=== PATIENT | male | born 1990 ===

== ENCOUNTER 2019-04-29 05:22 | Day surgery (SDC) | payer OTHER ==
[2019-04-29] VITALS (10 sets, daily range): BP systolic 104–130; BP diastolic 45–83
[~2019-04-29] VITALS: Ht 167.6 cm; Wt 81.6 kg
[~2019-04-29 05:22] MED LIST: NKM
[2019-04-29] MEDS ORDERED: celeBREX 200mg Cap **SURGERY PATIENTS ONLY ORAL ONE (06:00)
[2019-04-29] MEDS ORDERED: ceFAZolin 1gm IVPB IVPB ONE ×2 (06:00)
[2019-04-29] MEDS ORDERED: oxyCONTIN 20mg tab ORAL ONE (06:00)
[2019-04-29] MEDS ORDERED: FISH OIL CAP1000 MG ORAL (06:14)
[2019-04-29] MEDS ORDERED: D5 1/2NS 1,000 ML IV SCH (07:15)
[2019-04-29] MEDS ORDERED: HYDROcodone/Acetamin 5/325 tab ORAL PRN (07:15)
[2019-04-29] MEDS ORDERED: Tylenol #3 tab (300mg/30mg) ORAL PRN (07:15)
--- NOTE | 2019-04-29 07:16 | Operative Note - PDOC ---
Operative Note Operative Note Pre-op Diagnosis: orif left syndesmotic ligameny with painful hardware Procedure: see op report Post-op Diagnosis: same as pre-op plus Operative Findings: consistent w/pre-op dx studies Anesthesia: MAC Specimen: none Complications: none Condition: stable Estimated Blood Loss: none Implant(s) used?: No Too Sy MD Apr 29, 2019 07:16
--- NOTE | 2019-04-29 07:16 | Pre-Procedure Note/Attestation ---
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 I attest that, if there was a reasonable possibility of needing a blood transfusion, the patient (or the patient's legal clearance representative) was given the [facility] standardized written summary, pursuant to the Ángel Klaus Blood Safety Act ([place] Health and Safety Code # 1645, as amended). I attest that I re-evaluated the patient just prior to the surgery and that there has been no change in the patient's H&P, except as documented below: Too Sy MD Apr 29, 2019 07:16
[2019-04-29] MEDS ORDERED: Midazolam 2mg/2ml Inj ONE (07:23)
[2019-04-29] MEDS ORDERED: fentaNYL 100 mcg/2 mL IV ONE (07:23)
[2019-04-29] MEDS ORDERED: LR 1000ml ONE (07:30)
[2019-04-29] MEDS ORDERED: Bupivacaine w/Epi 0.5% 30ml Vial INJ ONE (07:34)
--- NOTE | 2019-04-29 07:34 | Anethesia Preoperative Eval ---
Anesthesia Pre-op PMH/ROS General Date of Evaluation: Apr 29, 2019 Time of Evaluation: 07:32 Anesthesiologist: ursula ASA Score: ASA 1 Mallampati Score Class I : Soft palate, uvula, fauces, pillars visible Class II: Soft palate, uvula, fauces visible Class III: Soft palate, base of uvula visible Class IV: Only hard plate visible Mallampati Classification: Class II Surgeon: elenita Diagnosis: ankle pain Surgical Procedure: removal of ankle screw Anesthesia History: none Family History: no anesthesia problems Allergies: Coded Allergies: No Known Allergies (Unverified , 04/28/19) Medications: see eMAR Patient NPO?: Yes NPO Date: Apr 29, 2019 NPO Time: 00:01 Past Medical History Cardiovascular: Denies: HTN, CAD, ND, valve dz, arrhythmia, other Pulmonary: Denies: asthma, COPD, THELMA, other Gastrointestinal/Genitourinary: Denies: GERD, CRI, ESRD, other Neurologic/Psychiatric: Denies: dementia, CVA, depression/anxiety, TIA, other HEENT: Denies: cataract (L), cataract (R), glaucoma, NATIVE (L), NATIVE (R), other Hematology/Immune: Denies: anemia, DVT, bleeding disorder, other Musculoskeletal/Integumentary: Denies: OA, RA, DJD, DDD, edema, other PSxH Narrative: ankle surgery Anesthesia Pre-op Phys. Exam Physician Exam Last Vital Signs Date Time Temp Pulse Resp B/P (MAP) Pulse Ox O2 Delivery O2 Flow Rate FiO2 04/29/19 06:06 97.6 65 20 120/64 97 Room Air Constitutional: NAD Neurologic: CN 2-12 intact Cardiovascular: RRR Respiratory: CTA Gastrointestinal: S/NT/ND Airway Exam Mallampati Classification 2 Mallampati Score: Class II MO: full Neck: normal TMD: 2fb ROM: full Teeth: intact Dentures: no upper, no lower Anesthesia Pre-op A/P Studies Pre-op Studies: EKG - SR Risk Assessment & Plan Plan: general Status Change Before Surgery: No Pre-Antibiotics Drug: ancef Given Within 1 Hr of Incision: Yes Time Given: 07:40 Trena Chinchilla CRNA Apr 29, 2019 07:34
[2019-04-29] MEDS ORDERED: NeoSporin Gu Irrig 1ml Amp IRRIG ONE (07:35)
[2019-04-29] MEDS ORDERED: Bacitracin 50000 Units Vial ONE (07:35)
[2019-04-29] MEDS ORDERED: fentaNYL 100 mcg/2 mL IV PRN (07:45)
[2019-04-29] MEDS ORDERED: Lidocaine 1% MPF 10mg/ml 5ml ONE (07:48)
[2019-04-29] MEDS ORDERED: Propofol 200mg/20ml IV ONE (07:48)
[2019-04-29] MEDS ORDERED: Ketorolac 30mg Inj ONE (08:03)
--- NOTE | 2019-04-29 08:30 | Immediate Post-Op Evaluation ---
Immediate Post-Op Evalulation Immediate Post-Op Evalulation Procedure: left ankle screw removal Date of Evaluation: Apr 29, 2019 Time of Evaluation: 08:30 IV Fluids: 600 Blood Pressure Systolic: 104 Blood Pressure Diastolic: 54 Pulse Rate: 65 Respiratory Rate: 14 O2 Sat by Pulse Oximetry: 98 Temperature (Fahrenheit): 97.5 Nausea: No Vomiting: No Patient Status: awake, reacts, patent Hydration Status: adequate Drug: ancef Given Within 1 Hr of Incision: Yes Time Given: 07:35 Trena Chinchilla CRNA Apr 29, 2019 08:30
--- NOTE | 2019-04-29 11:22 | 48 Hour Post Anesthesia Eval ---
Post Anesthesia Evaluation Procedure: left ankle screw removal Date of Evaluation: Apr 29, 2019 Time of Evaluation: 11:22 Blood Pressure Systolic: 114 0: 56 Pulse Rate: 70 Respiratory Rate: 14 O2 Sat by Pulse Oximetry: 98 Airway: patent Nausea: No Vomiting: No Hydration Status: adequate Cardiopulmonary Status: stable Mental Status/LOC: patient returned to baseline Post-Anesthesia Complications: none Follow-up care needed: N/A Trena Chinchilla CRNA Apr 29, 2019 11:22
--- NOTE | 2019-04-29 11:48 | Diagnostic Imaging Report ---
INDICATION: Pain, intraoperative TECHNIQUE: Intraoperative imaging Fluoroscopy time: 5.9 seconds Total dose: 0.80809 mGym2 Total number of images: 2 COMPARISON: None FINDINGS: Intraoperative images document screw removal IMPRESSION: Intraoperative imaging, as described
--- NOTE | 2019-04-29 14:45 | Operative Note - Dictated ---
DATE OF OPERATION: 04/29/2019 PREOPERATIVE DIAGNOSES: 1. Status post open reduction and internal fixation of syndesmotic injury. 2. Painful hardware. POSTOPERATIVE DIAGNOSES: 1. Status post open reduction and internal fixation of syndesmotic injury. 2. Painful hardware. PROCEDURE: Removal of screws x3. SURGEON: Too Sy M.D. ANESTHESIA: General. INDICATION FOR PROCEDURE: The patient is a pleasant gentleman who underwent open reduction and internal fixation of left ankle fracture fixation with syndesmosis. The patient was indicated to undergo removal of the syndesmotic screw. Risks, limitations, expectations, and complications of procedure were discussed in detail. All questions addressed. DESCRIPTION OF PROCEDURE: After informed consent and the patient was brought to the operating room, the patient was placed under general anesthesia. Left leg was prepped and draped in a sterile manner. Time-out was performed. Lateral skin incision was then made. The distal screws were evaluated and were little bit prominent, but little bit loose too. The 2 screws were removed given that the fracture was healed. The syndesmotic screw was then identified and that was also removed. Once that was done, the instruments were removed. The skin was closed using Monocryl suture. Steri-Strips and a sterile dressing were applied. The patient was awoken and taken to recovery room with stable vital signs. ESTIMATED BLOOD LOSS: None. COMPLICATIONS: None. SPECIMENS: None. IMPLANTS: None. Too Sy M.D. DR: JOSE JOB#: [id number] CC:
[2019-04-29] MEDS ORDERED: HYDROmorphone 1mg/ml Carpuject SUBQ PRN (15:33)
== END 2019-04-29 10:10 | disposition home or self-care (01) ==
LOC: SUR 05:22 → EDSTATUS 07:00 → EDBD 07:00 → SUR 10:10
DX: T85.848A Pain due to other internal prosthetic devices, implants and grafts, initial encounter (principal); X58.XXXA Exposure to other specified factors, initial encounter; Y92.9 Unspecified place or not applicable
CPT/HCPCS: 20680; 73600; 76000; J0690; J1885; J2250; J2405; J2704; J3010; J7120; 94003; 94150